=== PATIENT | female | born 1990 | race Caucasian/White ===

== ENCOUNTER 2019-02-16 18:13 | Emergency (ER) | payer OTHER, MEDICAID ==
[~2019-02-16] VITALS: Ht 149.9 cm; Wt 77.1 kg
[~2019-02-16 18:13] MED LIST: AZITHROMYCIN 2250 MG PO; CALCIUM 500 +1 EAC5 PO; HYDROCODONE-AP1 EAC6 PO; IBUPROFEN 600600 M1 PO; IRON325 PO; KEFLEX500 MG PO; MUCINEX TA600 MG/TA2 PO; NYQUIL D COLD295 ML PO; OSELB75 PO; PRENATAL; PROMETHAZINE-D120 ML PO; TRAMADOL 50 MG50 MG PO; VENTOLIN HFA 1818 GM INH
[2019-02-16] MEDS ORDERED: MAGNESIUM250 M1 PO (18:32)
[2019-02-16] MEDS ORDERED: PAXIL40 MG PO (18:32)
[2019-02-16] MEDS ORDERED: DOXEPIN 50MG CA50 MG PO (18:33)
[2019-02-16 19:00] LABS: ABSOLUTE BASOPHILS 0.1 thou/uL (0.0-0.2); ABSOLUTE EOSINOPHILS 0.1 thou/uL (0.0-0.7); ABSOLUTE MONOCYTES 0.7 thou/uL (0.0-1.2); ABSOLUTE NEUTROPHILS 5.2 thou/uL (1.6-8.1); BASOPHILS 1.2 %; EOSINOPHILS 1.5 %; HEMATOCRIT 38.6 % (37.0-47.0); HEMOGLOBIN 12.8 gm/dL (12.0-15.0); LYMPHOCYTES 33.2 %; MCH 31.4 pg (26.0-34.0); MCV 95.1 fL (80.0-100.0); MONOCYTES 7.5 %; MPV 8.4 fl. (7.2-11.1); NUCLEATED RBCS 0 /100WBC; PLATELET COUNT* 250 thou/uL (150-400); POLYS 56.6 %; RBC 4.06 mil/uL (4.20-5.00); RDW-CV 13.7 % (10.5-14.5); WBC 9.2 thou/uL (4.0-11.0)
[2019-02-16 19:09] LABS: CALCIUM 9.1 mg/dL (8.5-10.1); CREATININE 0.7 mg/dL (0.6-1.3); POTASSIUM 4.2 mmol/L (3.5-5.1)
[2019-02-16 19:14] LABS: ALBUMIN 3.6 g/dL (3.4-5.0); TOTAL BILIRUBIN 0.1 mg/dL (<0.1-1.0); TOTAL PROTEIN 7.5 g/dL (6.4-8.2)
[2019-02-16 20:56] VITALS: BP 126/76
== END 2019-02-16 20:56 | disposition home or self-care (01) ==
LOC: M.ERS 18:13
PROVIDERS: Family Medicine
DX: G43.909 Migraine, unspecified, not intractable, without status migrainosus (principal); F17.210 Nicotine dependence, cigarettes, uncomplicated; Z90.710 Acquired absence of both cervix and uterus; Z98.890 Other specified postprocedural states; Z88.6 Allergy status to analgesic agent; Z88.5 Allergy status to narcotic agent; Z88.0 Allergy status to penicillin

== ENCOUNTER 2020-12-27 15:59 | Emergency (ER) | payer OTHER, MEDICAID ==
[~2020-12-27] VITALS: Ht 149.9 cm; Wt 86.2 kg
[~2020-12-27 15:59] MED LIST changes: +DOXEPIN 50MG CA50 MG PO; +MAGNESIUM250 M1 PO; +PAXIL40 MG PO
[2020-12-27 17:15] LABS: ABSOLUTE BASOPHILS 0.1 thou/uL (0.0-0.2); ABSOLUTE EOSINOPHILS 0.1 thou/uL (0.0-0.7); ABSOLUTE LYMPHOCYTES 2.4 thou/uL (0.8-5.3); ABSOLUTE MONOCYTES 0.7 thou/uL (0.0-1.2); ABSOLUTE NEUTROPHILS 5.3 thou/uL (1.6-8.1); EOSINOPHILS 1.3 %; HEMATOCRIT 39.1 % (37.0-47.0); HEMOGLOBIN 13.1 gm/dL (12.0-15.0); LYMPHOCYTES 28.5 %; MCH 31.6 pg (26.0-34.0); MCHC 33.5 g/dL (28.0-37.0); MCV 94.5 fL (80.0-100.0); MONOCYTES 7.6 %; MPV 9.1 fl. (7.2-11.1); NUCLEATED RBCS 0 /100WBC; PLATELET COUNT* 211 thou/uL (150-400); POLYS 61.6 %; RBC 4.14 mil/uL (4.20-5.00); RDW-CV 13.2 % (10.5-14.5); WBC 8.6 thou/uL (4.0-11.0)
[2020-12-27 17:23] LABS: CREATININE 0.6 mg/dL (0.6-1.3); POTASSIUM 3.6 mmol/L (3.5-5.1)
[2020-12-27 17:35] LABS: ALBUMIN 3.6 g/dL (3.4-5.0); CK-MB MASS 0.7 ng/mL (<0.5-3.6); TOTAL BILIRUBIN 0.2 mg/dL (<0.1-1.0); TOTAL PROTEIN 7.3 g/dL (6.4-8.2)
[2020-12-27 17:58] VITALS: BP 102/64
--- NOTE | 2020-12-28 10:19 | EKG ---
[place] [address] ELECTROCARDIOGRAM REPORT Name: LALA KANG Room: [facility]#: [id number] Admission: 12/27/20 Attend Phys: Discharge: 12/27/20 Date of : 86 Date of Service: 12/27/20 1601 Report #: [id number] THIS REPORT FOR: //name// [facility] ED Test Date: 2020-12-27 Test Time: 16:01:02 Pat Name: LALA KANG Department: Room: Gender: F Rn School: [employer] : 1990 Requested By: Clem Quach Order Number: [id number] MD: Gaudencio Rebolledo Measurements Intervals [place] Rate: 90 P: 56 DE: 117 QRS: 43 QRSD: 86 T: -75 QT: 318 QTc: 389 Interpretive Statements Sinus rhythm Borderline short DE interval Probable left atrial enlargement Borderline repolarization abnormality No previous ECG available for comparison Electronically Signed On 12-28-2020 10:19:28 [employer]BACK [employer]PER[employer] by Gaudencio Rebolledo [email or web address] <ELECTRONICALLY SIGNED> By: Gaudencio Rebolledo MD, [facility] 12/28/20 1019 1601 1601 Gaudencio Rebolledo MD, [facility] /EPI
== END 2020-12-27 18:00 | disposition home or self-care (01) ==
LOC: M.ERS 15:59
PROVIDERS: Family Medicine
DX: R07.89 Other chest pain (principal); G43.909 Migraine, unspecified, not intractable, without status migrainosus; F17.210 Nicotine dependence, cigarettes, uncomplicated; Z88.0 Allergy status to penicillin; Z90.710 Acquired absence of both cervix and uterus; Z88.5 Allergy status to narcotic agent; Z88.6 Allergy status to analgesic agent

== ENCOUNTER → 2021-04-16 | Emergency (ER) | payer OTHER, MEDICAID ==
[~2021-04-16] VITALS: Ht 152.4 cm; Wt 83.9 kg
[~2021-04-16] MED LIST changes: +ZPAK PO
[2021-04-16 07:59] VITALS: BP 120/79
== END ==
LOC: M.ERS 07:46
DX: J02.0 Streptococcal pharyngitis (principal); G43.909 Migraine, unspecified, not intractable, without status migrainosus; F17.210 Nicotine dependence, cigarettes, uncomplicated; Z90.710 Acquired absence of both cervix and uterus; Z98.890 Other specified postprocedural states; Z88.0 Allergy status to penicillin; Z88.6 Allergy status to analgesic agent; Z88.8 Allergy status to other drugs, medicaments and biological substances